=== PATIENT | female | born 1970 | race Caucasian/White ===

== ENCOUNTER 2024-02-20 23:13 | Emergency (ER) | payer MEDICAID, OTHER ==
[~2024-02-20] VITALS: Ht 165.1 cm; Wt 108.9 kg
[~2024-02-20 23:13] MED LIST: ACET-10509 PO; FERR325E14 PO; LORA10TA19 PO; THE PO
[2024-02-20 23:46] VITALS: BP 148/69; PULSE 78; RESP 18; TEMP 98.2; O2SAT 99
[2024-02-21 00:38] LABS: FLU A ANTIGEN negative (NEGATIVE); FLU B ANTIGEN NEGATIVE (NEGATIVE)
[2024-02-21] MEDS ORDERED: BENZ200C4 PO (01:46)
== END 2024-02-21 01:52 | disposition home or self-care (01) ==
LOC: MED 23:13
DX: J10.1 Influenza due to other identified influenza virus with other respiratory manifestations (principal); Z20.822 Contact with and (suspected) exposure to COVID-19; I10 Essential (primary) hypertension; Z79.899 Other long term (current) drug therapy; Z88.8 Allergy status to other drugs, medicaments and biological substances
CPT/HCPCS: 99283